=== PATIENT | female | born 1960 | race Caucasian/White ===

== ENCOUNTER → 2022-05-05 | Day surgery (SDC) | payer OTHER ==
[~2022-05-05] MED LIST: ATORVASTATIN CA20 MG PO; CALCIUM PO; CLONAZEPAM1 MG PO; GLYBURIDE-METF1 EAC1; HYOSCYAMINE SULFATE 0.5 MG/ML INJ ONE; LEVOTHYROXINE50 MCG PO; LEXAPRO10 MG PO; LIDOCAINE HCL 2% LOCAL INJ 5 ML SDV VIAL INJ ONE; MIDAZOLAM HCL 2 MG/2 ML VIAL ONE; POVIDONE IODINE 0.05% 0.05 % ML PO ONE; PROPOFOL IV EMULSION 10 MG/ML 20 ML VIAL ONE; PROTONIX20 MG PO; TRAZODONE HCL100 MG PO; ZINC PO
[2022-05-05 14:36] VITALS: BP 121/82
== END | disposition home or self-care (01) ==
LOC: OR 10:13
PROVIDERS: ATTEND Internal Medicine Gastroenterology
DX: K52.9 Noninfective gastroenteritis and colitis, unspecified (principal); K29.70 Gastritis, unspecified, without bleeding; K20.90 Esophagitis, unspecified without bleeding; K31.9 Disease of stomach and duodenum, unspecified; K62.89 Other specified diseases of anus and rectum; K44.9 Diaphragmatic hernia without obstruction or gangrene; K21.9 Gastro-esophageal reflux disease without esophagitis; K59.09 Other constipation; K64.8 Other hemorrhoids; Z90.49 Acquired absence of other specified parts of digestive tract; Z71.3 Dietary counseling and surveillance; G47.33 Obstructive sleep apnea (adult) (pediatric); E11.9 Type 2 diabetes mellitus without complications; E03.9 Hypothyroidism, unspecified; E78.5 Hyperlipidemia, unspecified; Z01.810 Encounter for preprocedural cardiovascular examination; Z79.84 Long term (current) use of oral hypoglycemic drugs; Z79.899 Other long term (current) drug therapy; Z68.29 Body mass index [BMI] 29.0-29.9, adult; Z98.890 Other specified postprocedural states
CPT/HCPCS: 36415; 43239; 45380; 82948; 83630; 83993; 87045; 87177; 87324; 87328; 87449; 93005; C9113; J1980; J2001; J2250; J2704; 45378